=== PATIENT | female | born 1955 | race Caucasian/White ===

== ENCOUNTER 2017-12-26 06:51 | Day surgery (SDC) | payer OTHER ==
[~2017-12-26 06:51] MED LIST: ULTRACET PO
== END 2017-12-26 11:20 | disposition home or self-care (01) ==
LOC: AMB-ENDOS 06:51
DX: D12.8 Benign neoplasm of rectum (principal)

== ENCOUNTER → 2018-04-09 | Day surgery (SDC) | payer OTHER | END | disposition home or self-care (01) | LOC: ADM 04-04 15:15 → CIR.AMB 05:30 | DX: Z85.038 Personal history of other malignant neoplasm of large intestine (principal) ==

== ENCOUNTER 2019-03-19 06:44 | Day surgery (SDC) | payer OTHER | END 2019-03-19 12:20 | disposition home or self-care (01) | LOC: AMB-ENDOS 06:44 | DX: K63.89 Other specified diseases of intestine (principal); Z85.038 Personal history of other malignant neoplasm of large intestine; Z08 Encounter for follow-up examination after completed treatment for malignant neoplasm ==